=== PATIENT | female | born 1935 | race Hispanic/Latino ===

== ENCOUNTER 2017-11-13 05:48 | Day surgery (SDC) | payer OTHER, MEDICARE ==
[2017-11-12 08:54] VITALS: BMI 26.4
--- NOTE | 2017-11-13 08:17 | HP ---
SHORT STAY HISTORY AND PHYSICAL DATE OF ADMISSION: 11/13/2017 HISTORY OF PRESENT ILLNESS: This is an 82-year-old Latin-[place] female, referred to me by Dr. Rufus Lora, because of abdominal pain. The patient gives history of abdominal pain over the last several months. The patient has had a gynecology evaluation and had urology evaluation and also had an abdominal CAT scan and pelvic sonogram. Abdominal pain was primarily over the lower abdomen. Pain has been persistent. Her bowel movements are regular. No hematochezia. The patient had extensive workup done and all the workup is negative. Because of this abdominal pain, she was brought for a colonoscopy. ALLERGIES: PENICILLIN. MEDICAL ILLNESSES: 1. Diabetes mellitus. 2. Hypertension. 3. Hypothyroidism. 4. Chronic anxiety/depression. SURGERIES: Cholecystectomy, back surgery, appendectomy. She has had cataract removal and also had joint replacement. PHYSICAL EXAMINATION: GENERAL: Appears comfortable. VITAL SIGNS: Stable. HEENT: Conjunctivae clear. CARDIOVASCULAR SYSTEM: First and second heart sounds normal. LUNGS: Clear to auscultation. ABDOMEN: Soft. Abdomen is tender over the left lower quadrant, no masses. ADMITTING DIAGNOSIS: Persistent abdominal pain with negative evaluation so far. The patient undergoing colonoscopy. FUNMILAYO
[2017-11-13] MEDS ORDERED: Fentanyl 100 MCG/2 ML VIAL ONE (10:55)
[2017-11-13] MEDS ORDERED: Lidocaine 1% PF 5 ML VIAL ONE (13:24)
[2017-11-13] MEDS ORDERED: PROPOFOL 200 MG/20 ML VIAL ONE (13:24)
--- NOTE | 2017-11-13 21:36 | OP ---
DATE OF SURGERY: 11/13/2017 PREOPERATIVE DIAGNOSIS: An 82-year-old Latin-[place] female with chronic abdominal pain. The pain is across the lower abdomen as well as left lower quadrant and left area. The patient had negative gynecic evaluation. She had a negative CAT scan of abdomen, negative pelvic and abdominal sonogram. The patient underwent a colonoscopy. POSTOPERATIVE DIAGNOSES: 1. Tortuous sigmoid colon. 2. Sigmoid diverticular disease. 3. Sessile polyps x2 in the rectum, status post polypectomy. 4. Hemorrhoids. OPERATIVE PROCEDURE: 1. Colonoscopy with polypectomy. 2. Colonoscopy with 7-Pashto heater probe therapy of polypectomy site because of bleeding. 3. Injection of epinephrine over the polypectomy site to control bleeding after polypectomy. PROCEDURE NOTE: The patient was placed on her left lateral position and was given sedation by Anesthesia Department. A rectal exam was done, and scope was advanced into the rectum. No other lesion felt on rectal exam. A Pentax video colonoscope was introduced into the rectum and advanced all the way into cecum. The prep was very good. The mucosa appeared normal. The patient had a tortuous colon in the sigmoid colon. The mucosa appeared normal throughout the colon. The appendicular opening, ileocecal valve, cecum, no pathology seen. The ascending colon, hepatic flexure, transverse colon, splenic flexure, descending colon, no pathology seen. The sigmoid colon showed scattered diverticular disease. There is a broad-based sessile polyp over the rectum. This was removed with snare cautery. However, the cautery did not look very well and the patient had brisk bleeding from a visible vessel from the polypectomy site. Initially, it was cauterized with 7-Pashto heater probe to slow down the bleeding. The bleeding did not control. I directly injected epinephrine 1:10,000 solution to the polypectomy site. It was injected at 1 mL increment to total of 6 mL. Following the injection, the bleeding actually quit. The area was again cauterised with good hemostasis. Another sessile rectal polyp removed with snare cautery with good hemostasis. Rectum also showed hemorrhoids. DISCHARGE PLANNING: This is an 82-year-old Latin-[place] female, who came for a colonoscopy, because of abdominal pain, which has been chronic in nature. The pain is over the lower abdomen and has had negative CAT scan of the abdomen and negative pelvic and abdominal sonogram. She underwent polypectomy x2 in the rectum. One of the polyps at the site did not cauterize well and had to be cauterized with the probe and also had to be injected with epinephrine. The patient did well post procedure, and is being discharged home. DISCHARGE INSTRUCTIONS: 1. Patient advised to call me if she develops abdominal pain and hematochezia. 2. In the absence of any of the above symptoms, she will come back to me in 2 weeks. FUNMILAYO
== END 2017-11-13 13:27 | disposition home or self-care (01) ==
LOC: SDC 05:48
PROVIDERS: ATTEND Internal Medicine Gastroenterology
PROC: 0DBP8ZX Excision of Rectum, Via Natural or Artificial Opening Endoscopic, Diagnostic (ICD-10-PCS; principal; 2017-11-13)
DX: D12.8 Benign neoplasm of rectum (principal); K57.30 Diverticulosis of large intestine without perforation or abscess without bleeding; K64.9 Unspecified hemorrhoids; E11.9 Type 2 diabetes mellitus without complications; I10 Essential (primary) hypertension; E03.9 Hypothyroidism, unspecified; F41.9 Anxiety disorder, unspecified; F32.9 Major depressive disorder, single episode, unspecified; Z88.0 Allergy status to penicillin; Z79.82 Long term (current) use of aspirin; Z79.899 Other long term (current) drug therapy; Z79.84 Long term (current) use of oral hypoglycemic drugs
CPT/HCPCS: 88305; 96374; J2001; J2704; J3010